=== PATIENT | male | born 1945 | race Caucasian/White ===

== ENCOUNTER 2023-01-16 16:19 | Emergency (ER) | payer MEDICARE, OTHER, SELFPAY ==
[2023-01-16 16:54] VITALS: BP 116/70; PULSE 97; RESP 16; TEMP 36.7; O2SAT 94; BMI 30.2
--- NOTE | 2023-01-16 16:58 | DI.US.S_ITS ---
PROCEDURE: US PERIPH VENOUS LOW EXTREM LT INDICATIONS: RULE OUT DVT TECHNIQUE: Real-time imaging, as well as color and pulse Doppler interrogation, were performed of the lower extremity deep veins from the inguinal ligament to the popliteal fossa. COMPARISON: None. FINDINGS: The common femoral, femoral and popliteal veins are normally compressible, and free of intraluminal thrombus. Color and pulse Doppler demonstrate normal phasic intraluminal flow. There is normal augmentation response to distal compression maneuver. IMPRESSION: No deep venous thrombosis. It is noted that portions of the deep venous structures are suboptimally visualized secondary to edema. Dictated by: Anjali Chi M.D. on 01/16/2023 at 18:32 Approved by: Anjali Chi M.D. on 01/16/2023 at 18:32
--- NOTE | 2023-01-16 19:11 | ED_ITS ---
HPI - Extremity Problem General Chief complaint: Extremity Problem,Nontraumatic Stated complaint: lt leg pain, swelling Time Seen by Provider: 01/16/23 17:36 Source: patient Mode of arrival: Ambulatory History of Present Illness HPI Narrative: Patient is a 77-year-old male who was sent over to the emergency department by his pc technician for evaluation of a potential DVT in his left lower extremity. He is had swelling to his left lower extremity for the past several days. Has never had a blood clot in the past. Is being seen by Dermatology secondary to eczema. Does have some redness on the front of his leg but no real discomfort. He can ambulate like. He does spend quite a bit of time standing and also sitting with his knees bent. No chest pain or shortness of breath. Related Data Previous Rx's Medication Instructions Recorded cephalexin 500 mg capsule 500 mg PO QID 5 days #20 caps 01/16/23 Review of Systems Constitutional Constitutional: Reports system reviewed and no additional complaints, except as documented Musculoskeletal Musculoskeletal: Reports system reviewed and no additional complaints, except as documented Integumentary/Breasts Skin/Breast: Reports system reviewed and no additional complaints, except as documented Hematologic/Lymphatic On Anticoagulants: No Patient History Social History Smoking Status: Current every day smoker Smoking Status: Current every day smoker tobacco type: cigarettes alcohol intake frequency: a few times a week Alcohol type: hard liquor Substance Use Type: does not use Exam Initial Vital Signs Initial Vital Signs: Vital Signs Temperature 98.1 F 01/16/23 16:54 Pulse Rate 97 H 01/16/23 16:54 Respiratory Rate 16 01/16/23 16:54 Blood Pressure 116/70 01/16/23 16:54 Pulse Oximetry 94 01/16/23 16:54 Oxygen Delivery Method Room Air 01/16/23 16:54 HENME Head: normal to inspection and normocephalic Skin Other: Mild redness on the anterior aspect of the distal 3rd of his left lower extremity. No blisters. No ulcerations. No vesicles. No pustules. Neuro Sensory Exam: no sensory deficits noted Extrem Other: Patient does have circumferential swelling to his left lower extremity up to his knee. No discomfort with palpation or movement of his left ankle and knee. Course Orders Ordered: ED Orders 01/16/23 16:58 US periph venous low extrem lt Stat Vital Signs Vital signs: Vital Signs - 8 hr 01/16/23 19:19 Pulse Rate 80 Respiratory Rate 18 Blood Pressure 150/70 H Pulse Oximetry 98 Oxygen Delivery Method Room Air MDM - Extremity (Nontraumatic) Imaging Data US - DVT: Radiologist's Impression: PROCEDURE:? US PERIPH VENOUS LOW EXTREM LT ? INDICATIONS:? RULE OUT DVT ? TECHNIQUE:? Real-time imaging, as well as color and pulse Doppler interrogation, were performed of the lower extremity deep veins from the inguinal ligament to the popliteal fossa.? ? COMPARISON:? None. ? FINDINGS:? The common femoral, femoral and popliteal veins are normally compressible, and free of intraluminal thrombus.? Color and pulse Doppler demonstrate normal phasic intraluminal flow.? There is normal augmentation response to distal compression maneuver. ? ? IMPRESSION:? No deep venous thrombosis.? It is noted that portions of the deep venous structures are suboptimally visualized secondary to edema. [facility] Narrative Medical decision making narrative: Ultrasound/no signs of a blood clot. He does have circumferential swelling. No definitive evidence that this is a cellulitis but does have some redness. It has not worsened over the past couple days. Will discharge patient home with a prescription in hand for antibiotics in case the redness worsens were starts to develop pain or there is more warmth to the area. Patient understands this. That does not develop an he will not start taking the antibiotics and will contact his primary doctor for further evaluation of his unilateral leg swelling. Discharge Plan Departure Patient Disposition: Home Clinical Impression: Lower extremity edema Instructions: DI for Peripheral Edema-Unilateral Activity Restrictions/Additional Instructions: I do recommend that you try to keep your leg elevated as much as possible like we discussed. Keep all of your scheduled medical appointments. If you start to notice increase in redness or fevers or warmth then start taking the antibiotics as directed. Contact your primary doctor for follow-up. Prescriptions: New cephalexin 500 mg capsule 500 mg PO QID 5 Days Qty: 20 0RF Referrals: Lane Pimentel MD [Primary Care Provider] - Stand Alone Forms: Patient Portal/API
[2023-01-16 19:19] VITALS: BP 150/70; PULSE 80; RESP 18; O2SAT 98
== END 2023-01-16 19:19 | disposition home or self-care (01) ==
PROVIDERS: Emergency Provider Emergency Medicine; PCP Family Medicine; Referring Provider Family Medicine
DX: R60.0 Localized edema (principal)
CPT/HCPCS: 93971; 99281; 99283

== ENCOUNTER → 2023-02-20 07:15 | Outpatient (CLI) | payer MEDICARE, OTHER, SELFPAY ==
--- NOTE | 2023-02-20 | DI.MRI.S_ITS ---
PROCEDURE: MR LUMBAR SPINE WO CON INDICATIONS: Low back pain, unspecified TECHNIQUE: Noncontrast sagittal T1 spin echo and T2 fast echo, sagittal STIR, and T2 fast spin echo through the lumbar spine. In cases with scoliosis, additional coronal T2 fast spin echo may be performed. COMPARISON: [facility] [place], CR, XR LUMBAR SPINE 2 OR 3 VIEWS, 02/06/2023, 8:46. FINDINGS: Image quality: Excellent. Alignment and Curvature: There is normal bony alignment. Bone Marrow: Marrow is of normal overall signal. No acute vertebral body compression fractures. Spinal Cord: Conus medullaris terminates at the L1-L2 level. Visualized cord demonstrates normal signal and size. Paraspinous Soft Tissues: No paravertebral masses. T12-L1: Normal appearance. L1-L2: Disc bulge. Minimal facet hypertrophy. No canal stenosis or foraminal stenosis. L2-L3: Disc bulge. Mild facet hypertrophy. No canal stenosis or foraminal stenosis. L3-L4: Disc bulge. Facet and ligament hypertrophy. Short pedicles. Moderate canal stenosis. Moderate right foraminal stenosis with mild flattening deformity on the exiting right L3 nerve root. Mild to moderate left foraminal stenosis. L4-L5: Disc bulge. Facet and ligament hypertrophy. Short pedicles. Severe canal stenosis. Moderate to severe right foraminal narrowing with a degree of right foraminal L4 nerve root impingement. Moderate left foraminal narrowing with mild flattening deformity on the exiting left L4 nerve root. L5-S1: Posterior disc plus osteophyte. Facet and ligament hypertrophy. Yxlw-jg-ppjvgemb central canal stenosis. Moderate right foraminal narrowing with flattening deformity on the exiting right L5 nerve root. Severe left foraminal narrowing with left foraminal L5 nerve root impingement. IMPRESSION: 1. Diffuse degenerative change with multilevel underlying facet arthropathy. 2. Canal stenosis is moderate at L3-L4, severe at L4-L5, and qnnm-od-qihwnund at L5-S1. 3. Multilevel foraminal narrowing as described above. Findings include moderate to severe right foraminal narrowing at L4-L5 and severe left foraminal narrowing at L5-S1. Dictated by: Grant Riddle M.D. on 02/20/2023 at 9:07 Approved by: Grant Riddle M.D. on 02/20/2023 at 9:11
== END ==
PROVIDERS: PCP Family Medicine; Referring Provider Orthopaedic Surgery Orthopaedic Surgery of the Spine; Visit Provider Orthopaedic Surgery Orthopaedic Surgery of the Spine
DX: M47.816 Spondylosis without myelopathy or radiculopathy, lumbar region (principal); M47.817 Spondylosis without myelopathy or radiculopathy, lumbosacral region; M48.061 Spinal stenosis, lumbar region without neurogenic claudication; M48.07 Spinal stenosis, lumbosacral region; M54.50 Low back pain, unspecified
CPT/HCPCS: 72148

== ENCOUNTER → 2024-06-14 14:50 | Outpatient (CLI) | payer MEDICARE, OTHER, SELFPAY ==
--- NOTE | 2024-06-14 15:13 | EKG_ITS ---
[place] [id number] [place] [id number] Test Date: 2024-06-14 Pat Name: Delfin Brannon Department: [facility] Room: Gender: Male Planisher: ALYSE : 1945 Requested By: Order Number: [id number] Reading MD: Lane Montemayor Measurements Intervals [place] Rate: 64 P: 75 AK: 154 QRS: -35 QRSD: 100 T: 49 QT: 390 QTc: 402 Interpretive Statements Normal sinus rhythm Left axis deviation Electronically Signed On 06-15-2024 14:44:[address]emayor
[2024-06-14 15:21] LABS: Add Manual Diff / Slide Review NO; Basophils Absolute Auto 0 /uL (0-100); Basophils Percent Auto 0.5 % (0-2); Eosinophils Absolute Auto 200 /uL (0-450); Eosinophils Percent Auto 3.7 % (2-4); Hematocrit 34.6 % (41-53); Hemoglobin 11.9 g/dL (13.5-17.5); Lymphocytes Absolute Auto 1500 /uL (1100-4500); Lymphocytes Percent Auto 26.7 % (25-40); Mean Corpuscular HGB Conc 34.3 % (30-36); Mean Corpuscular Hemoglobin 30.9 PG (26-34); Monocytes Absolute Auto 600 /uL (0-900); Monocytes Percent Auto 9.9 % (3-14); Neutrophils Absolute Auto 3300 /uL (1500-7000); Neutrophils Percent Auto 59.2 % (50-75); Platelet Count 204 X10^3/uL (150-400); Red Blood Cell Count 3.85 X10^6/uL (4.5-5.9); Red Cell Distribution Width 13.1 % (11.6-14.8); White Blood Cell Count 5.6 X10^3/uL (4.5-11.0)
[2024-06-14 15:47] LABS: BUN Creatinine Ratio 21.3 (6-22); Blood Urea Nitrogen 19 mg/dL (9-20); Calcium 9.3 mg/dL (8.4-10.2); Carbon Dioxide 27 mmol/L (22-32); Chloride 103 mmol/L (98-107); Estimated Glomerular Filt Rate > 60 mL/min (>60); Glucose 107 mg/dL (80-110); HEMOLYSIS < 15 (0-50); Potassium 4.3 mmol/L (3.4-5.1); Sodium 137 mmol/L (137-145)
== END ==
PROVIDERS: PCP Physician Assistant; Referring Provider Orthopaedic Surgery Foot and Ankle Surgery; Visit Provider Orthopaedic Surgery Foot and Ankle Surgery
DX: Z01.818 Encounter for other preprocedural examination (principal); R73.9 Hyperglycemia, unspecified; Z01.812 Encounter for preprocedural laboratory examination
CPT/HCPCS: 36415; 80048; 83036; 85025; 93005

== ENCOUNTER 2024-06-30 05:58 | Day surgery (SDC) | payer MEDICARE, OTHER, SELFPAY ==
[2024-06-28 08:37] VITALS: BMI 29.0
[2024-06-30] VITALS (12 sets, daily range): BP systolic 108–147; BP diastolic 57–84; PULSE 64–92; RESP 12–20; TEMP 36.1–36.6; O2SAT 94–98; BMI 28.0
--- NOTE | 2024-06-30 06:00 | DI.RAD.S_ITS ---
PROCEDURE: XR KNEE RT 1TO2V INDICATIONS: TKA TECHNIQUE: 2 view(s) of the knee acquired. COMPARISON: None. FINDINGS: Bones: Patient is status post knee joint arthroplasty. Hardware components are in expected positions. Visualized bony structures are intact. Soft tissues: Overlying postoperative changes are noted. IMPRESSION: Expected post-operative appearance of a knee arthroplasty. Dictated by: Grant Riddle M.D. on 06/30/2024 at 11:22 Approved by: Grant Riddle M.D. on 06/30/2024 at 11:22
[2024-06-30] MEDS: ACETAMINOPHEN 325 MG TABLET 975 MG PO (06:53)
[2024-06-30] MEDS: LACTATED RINGERS 1,000 ML 42 ML IV (06:55)
--- NOTE | 2024-06-30 06:55 | PM.PREOP ---
Pre-operative Note Interval Note History & Physical reviewed/Exam performed by Physician: Yes Changes to H&P: No
--- NOTE | 2024-06-30 07:35 | P.OP_ITS ---
Operative Date/Time/Diagnoses Date of procedure: 06/30/24 Time of procedure: 08:00 Pre-op diagnosis: Knee Arthritis right Post-op diagnosis: same Procedure & Clinicians Procedure: Total knee replacement right CPT code 81073 Robotic assisted surgery [id number] Computer navigated surgery [id number] Same procedure as scheduled: Yes Indications: The patient has significant pain associated with osteoarthritis of the right knee. It is associated with morning stiffness. Pain interferes with daily normal function including ambulation standing and any activities that are weight-bearing. It interferes with sleep. There is crepitation with range of motion. There is marked joint line tenderness. X-rays show significant levels of osteoarthritis. Double attempted previous conservative treatment has been rendered. The patient has failed exercise program, medications and previous injections. Patient is indicated for total knee arthroplasty. The risks and benefits of the procedure have been discussed with the patient and given the opportunity to ask questions. The risks of surgery include but are not limited to infection, malunion, nonunion, persistence of pain, damage to nerves and blood vessels, posttraumatic arthritis, DVT, PE, cardiopulmonary complications and . The patient expressed a thorough understanding of the risks and benefits of surgery and has elected to proceed. Consent was signed. During the operation, the services of a physician research lab assistant were medically indicated and necessary to provide the exposure of the operative site for the surgical procedure and to maintain the limb in a proper position to carry out the operation safely and efficiently. Without a qualified registered dental assistant rda being present this would extended the operative procedure and made the procedure technically more difficult to perform. Surgeon: Rosi Oseguera Account Developer: Deven Arredondo Anesthesia Type: General, Spinal, Peripheral nerve block and Local Operative Notes Findings: End-stage right knee arthritis full-thickness cartilage loss Closure Type: primary Specimen(s): none sent Prosthetic devices, grafts, tissues, transplants, or devices: [employer] Nephew journey 2 bCS Femur cobalt chromium 7 Tibia 6 Patella 38x9 Poly 10mm Estimated Blood Loss (mL): 100 Blood products transfused: none Tourniquet time (min): 75 Procedure in detail: Patient was seen in the preoperative area where the patient and site of surgery were identified in the operative right knee was marked informed consent confirmed. This was the right knee. Patient received the appropriate pre operative antibiotics this was 2 g of Ancef. And other preoperative medications and was taken to the operating room placed on operating table in the supine position. Spinal anesthetic were administered. The operative extremity was then prepped and draped in the standard sterile fashion with a nonsterile tourniquet high on the thigh. Patient was placed on the green foam bolsters. A lateral post was placed at the level of the proximal thigh /trochanter area as a lateral post. Formal time-out procedure was performed confirming the patient's side and site of surgery and administration of appropriate preoperative antibiotics and implants were in the room accounted for. All were in agreement. Patient received a preoperative dose of tranexamic acid and then a 2nd dose at tourniquet release Patient was prepped and draped in the standard sterile fashion and the foot was placed into the leg castaneda. This was taken into high flexion and the incision was marked out over the anterior knee to the level of the medial tubercle tubercle. The Esmarch was then used for exsanguination and the tourniquet was inflated to 250 mmHg. Was made through the skin and subcutaneous tissue in high flexion this was then brought down into 30? of flexion for the medial parapatellar arthrotomy. A marker pen was used to ramírez the arthrotomy site for later repair. Joint fluid was evacuated. The anterior osteophytes and soft tissues were removed. Routine medial release was initially made along the medial proximal tibia with Bovie. The patella was 1st cut using the saw sized and prepped and then subluxed throughout the case and protected. The leg was then taken into extension and the patella was everted and the patella was cut to accommodate the patellar button. This was sized to a 38 mm b utton for a 9 mm thickness to recreate the original dimensions of the patella. Poly was removed and the protector replaced and the patella was subluxed and the knee was taken back up into flexion and attention was returned to the femur. Then the rotational landmarks of Whitesides line and the trans epicondylar axis were marked on the femur with electrocautery. ACL and PCL were released. Then the Cori robotic pins were placed into the femur and tibia and the race set up. Landmarks were established and the robotic planning was commenced. Plan was developed and improved and adjusted as necessary to create a balanced knee. Initial alignment was 2? of varus planned correction was to 0?. 3? of external rotation was placed in the distal femur in 3? of flexion. Cuts were adjusted for a balanced 1-2 mm flexion and extension gap medial and lateral. Once the Plan was satisfactory, the bur was used to remove the distal femur and attention was turned to the tibia and the tibial resection was made accordance with the robotic planning. Next remainder of the meniscus was removed in extension and the posterior knee was injected. Then in extension the posterior capsule was injected with a mixture of 40 mL of 0.25% Marcaine and 20 mL of Exparel care to avoid excessive injection posterior laterally. The remainder of this was saved for the capsule and subcutaneous tissue and placed during cement curing. The extension block was placed and matched the robotic plan. Then attention was returned to the distal femur. Then the 5 in 1 cutting block was applied complete the femur cuts. The trials were placed. And the femoral notch was cut a standard fashion using Reamer then slap hammer. The knee was trialed and the checked. Knee was balanced in flexion extension. Range of motion 0-135 degrees was obtained. The rotation femoral trial was marked Bovie on the bone and checked with a long beverly. The tibia was then finished with a drill and flange cut and then The trial implants were removed. The wound and bone was irrigated with pulsatile lavage. This was then dried with a sponge. The components were verified and opened and the cement was mixed. Cement was applied to the components and then to the bone then the tibia was cemented in place 1st followed by the femur then the patella. Excess cement was removed. With care looking around the back of the knee. Remainder of the injection was injected around the capsule. trial poly was placed back in the leg was placed into extension for the patellar cementing. After this was cured approximately 15 minutes later and the dilute Betadine solution was placed for at least 3 minutes in the wound this was then irrigated out and the final poly was placed. This was a 10 mm poly. The tourniquet was released hemostasis was achieved. Final 1g of tranexamic acid was given IV at the time of tourniquet release. The capsule was closed with 1. Ethibond suture. Followed by a running Quill stitch. Subcutaneous layer was closed with 3-0 Vicryl suture. Skin was closed with a running V lock suture Stratafix Monocryl type suture and Dermabond. An Aquacel dressing was placed . An Eddie wrap was applied. Anesthetic was terminated the patient was woken from anesthesia and taken to recovery room in good condition. There no immediate complications from this procedure. The patient will be maintained on a standard total knee replacement protocol with weight-bearing as tolerated. Complications: none Post-operative Condition: stable Disposition: PACU Plan for aftercare: Aspirin 81 mg b.i.d. enteric-coated x6 weeks for DVT prophylaxis. Weightbear as tolerated. Standard total knee arthroplasty postop protocol. We will start physical therapy within a week. Follow up in Orthopedic Clinic in 2 weeks. PACU x-rays demonstrated appropriate alignment total knee arthroplasty. May shower with Aquacel dressing. No soaking the dressing.
[2024-06-30] MEDS: CEFAZOLIN 2 GM/100 ML PREMIX 100 ML IV (08:10)
[2024-06-30] MEDS: TRANEXAMIC ACID 1,000 MG VIAL 1000 MG INJ ×2 (08:10→09:38)
--- NOTE | 2024-06-30 08:27 | SUR.OPER ---
Supine on padded OR bed. Pillow under head, arms secured on padded armboards <90 degree abduction. Safety belt across torso. Non-operative leg secured with tape over blanket over lower leg. Operative leg secured in DeMayo/Jose/Nathe positioner. Foam padded brace at thigh of operative leg.
[2024-06-30] MEDS: BUPIVACAINE 0.25% (PF) 30 ML, EPINEPHrine 0.15 MG INJ (09:25)
[2024-06-30] MEDS: BUPIVACAINE LIPOSOME 266 MG/20 ML VIAL INJ (09:25)
--- NOTE | 2024-06-30 09:29 | SUR.PREOP ---
Block complete by Noris Chen CRNA. See anesth paperword for times. Monitoring initiated and maintained throughout procedure. Oxygen and medications given by anesthesiologist instructions. Patient remained stable throughout procedure, no adverse reactions noted.
[2024-06-30] MEDS: ONDANSETRON 4 MG/2 ML INJ IV (11:32)
[2024-06-30] MEDS: OXYCODONE IR 5 MG TABLET PO (11:33)
--- NOTE | 2024-06-30 13:07 | PM.PNPO.1 ---
Subjective Subjective Interval history: Patient is staying overnight due to combination slow wearing off spinal and caregiver feeling ill and is unable to take care of him tonight. Should discharge home tomorrow morning. After PT Exam Vital Signs (past 8 hours): - 06/30/24 07:05 06/30/24 10:15 06/30/24 10:20 Temperature 97.9 F 97.3 F L 97.3 F L Pulse Rate 64 90 81 Respiratory Rate 12 16 17 Blood Pressure 115/67 147/84 H 144/76 H Pulse Oximetry 98 94 94 Oxygen Delivery Method Room Air Room Air Room Air 06/30/24 10:30 06/30/24 10:35 06/30/24 11:40 Temperature 97.1 F L 97.1 F L 97.6 F Pulse Rate 75 74 75 Respiratory Rate 15 14 14 Blood Pressure 130/81 131/79 130/74 Pulse Oximetry 95 95 95 Oxygen Delivery Method Room Air Room Air Room Air 06/30/24 12:45 Temperature 97.1 F L Pulse Rate 77 Respiratory Rate 17 Blood Pressure 127/73 Pulse Oximetry 95 Oxygen Delivery Method Room Air Oxygen Delivery Method Room Air [facility] Medical History (Updated 06/28/24 @ 10:35 by Sonal Horn RN) Tinnitus Arthritis Aortic stenosis (01/26/24) Pre-diabetes Atrial tachycardia (11/2023) Surgical History (Updated 06/28/24 @ 10:35 by Sonal Horn RN) History of surgery of head H/O vasectomy H/O inguinal hernia repair (~1996) Social History household members: spouse Smoking Status: Former smoker alcohol intake: former Assessment & Plan Post-op Postoperative Procedures: Procedures Operation Date: 06/30/24 07:45 Actual Procedure Side Surgeon p Total Knee Arthroplasty - Robot Right Rosi Oseguera MD
--- NOTE | 2024-06-30 13:27 | SUR.PHASEII ---
Report called to Ermelinda Valenzuela. Patient denied need to void, bladder scan pending.
--- NOTE | 2024-06-30 15:15 | SUR.PHASEII ---
1430 Pt transferred to 213 with 1 belongings bag, 1 personal bag with ice machine, walker and glasses on by Jan JAMES after straight cath for 750ml.
[2024-06-30] MEDS: FINASTERIDE 5 MG TABLET PO (16:41)
[2024-06-30] MEDS: LACTATED RINGERS 1,000 ML 100 ML IV (16:41)
--- NOTE | 2024-06-30 16:58 | PT.IIE ---
Current Diagnoses Unilateral primary osteoarthritis, right knee (06/30/24) Surgery Performed Operation Date: 06/30/24 07:45 Actual Procedures p Total Knee Arthroplasty - Robot(Right) - Rosi Oseguera MD Surgical History (Last Updated 06/28/24 @ 10:35 by Sonal Horn, RN) H/O inguinal hernia repair (~1996) H/O vasectomy History of surgery of head Medical History (Last Updated 06/28/24 @ 10:35 by Sonal Horn, RN) Aortic stenosis (01/26/24) Arthritis Atrial tachycardia (11/2023) Pre-diabetes Tinnitus Physical Therapy Inpatient Evaluation/Re-Eval M1 PT/OT-IP Prior Functional Status Start: 06/30/24 16:44 Freq: NEEDED Status: Active Protocol: Document 06/30/24 16:44 KJ (Rec: 06/30/24 16:58 KJ [id number]) Medical Review Prior Functional Status Mobility and Gait Indep mobility, most recently using a straight cane and knee brace Activities of Daily Living and IADL's Indep ADLs Social History Household Members spouse Living Arrangements House Number of Floors (Floors) One Floor Number of Stairs To Enter/Railing? 0 Home Environment Standard Height Toilet,High Toilet,Tub/Shower Home Equipment Front Wheel Walker,Shower Seat without Backrest Employment Status Retired M2 PT-IP Current Condition Start: 06/30/24 16:44 Freq: NEEDED Status: Active Protocol: Document 06/30/24 16:44 KJ (Rec: 06/30/24 16:58 KJ [id number]) Physical Therapy Current Condition Current Condition Evaluation Date 06/30/24 Treatment Diagnosis impaired mobility Onset Date 06/30/24 M3 PT-IP Subjective Start: 06/30/24 16:44 Freq: NEEDED Status: Active Protocol: Document 06/30/24 16:44 KJ (Rec: 06/30/24 16:58 KJ [id number]) Subjective Physical Therapy Visit Type Type Initial Evaluation Visit Start Time 15:14 Visit Stop Time 16:02 Physical Therapy Visit Comments Patient Goals to return home and heal well Therapy Pain Assessment Pain When Pain Assessed At Rest Pain Present Pain Present Pain Reported Location right knee Intensity 2 Scale Used Numeric (0 - 10) Description Aching Pain Management Techniques Apply Cold,Re-positioning M4 PT-IP Mobility and Gait Start: 06/30/24 16:44 Freq: NEEDED Status: Active Protocol: Document 06/30/24 16:44 KJ (Rec: 06/30/24 16:58 KJ [id number]) PT-Bed Mobility Assessment Rolling Type of Rolling Roll to Right Level of Assist Independent Supine to Sit Supine to Sit Standby Assistance Scooting Scooting to Edge of Bed Standby Assistance PT-Transfer Assessment Sit to and From Stand Sit to and from Stand Standby Assistance Equipment Transfer Assistive Device Gait Belt,Front Wheeled Walker Orthotic/Prosthetic Devices or Brace: No Transfers Transfer Destination Chair Transfer Technique Stand Step Pivot Transfer Ability Level of Assist Contact Guard Assistance Gait Assessment Gait Gait Assistance Required: Contact Guard Assist Distance (Feet) 5 Able to Maintain Weight Bearing Status Yes During Gait Assistive Devices Assistive Device Gait Belt,Front Wheeled Walker Gait Deviations General Gait Pattern Decreased Stride Length Factors Limiting Gait Function Factors Limiting Gait Function Decreased Sensation,Limited Range of Motion Comments Gait Comments decreased knee flex, guarded ambulation PT-Balance Assessment Sitting Balance and Reactions Static Sitting Balance Ability Normal Dynamic Sitting Balance Ability Normal Standing Balance and Reactions Static Standing Balance Ability Good Dynamic Standing Balance Ability Good M5 PT-IP Objective Assessments Start: 06/30/24 16:44 Freq: NEEDED Status: Active Protocol: Document 06/30/24 16:44 KJ (Rec: 06/30/24 16:58 KJ [id number]) Orientation Orientation/Cognition Level of Alertness Alert Orientation Name,Age,Birthday,Place, Situation Language Function Ability No Deficits Noted Safety Awareness Understands Safety Issues Memory Description No Deficits Noted Gross Range of Motion Upper Extremity ROM Assessment Within Functional Limits Lower Extremity ROM Assessment Right Impaired Strength Upper Extremity Strength Assessment Within Functional Limits Lower Extremity Strength Assessment Right Impaired Knee 3/5 M6 PT-IP Treatment Start: 06/30/24 16:44 Freq: NEEDED Status: Active Protocol: Document 06/30/24 16:44 KJ (Rec: 06/30/24 16:58 KJ [id number]) Physical Therapy Treatment Exercises Exercises Ankle Pumps,Gluteal Sets,Quad Sets,Seated Knee Flexion/ Extension Education Education Provided Weight Bearing Status,Post-Op Packet,Safety M7 PT-IP Assessment and Plan Start: 06/30/24 16:44 Freq: NEEDED Status: Active Protocol: Document 06/30/24 16:44 KJ (Rec: 11/13/24 16:58 KJ [id number]) PT Summary Assessment and Plan Potential Rehabilitation Potential Excellent Status of Condition at Evaluation Evolving Summary Impairments Pain,ROM,Strength,Sensation, Gait,Activity Tolerance Goals Bed Mobility Goal Independent Transfer Goal Standby Assistance Gait Goal Standby Assistance Gait Distance 30 Other Goals ascend/descend one step w/rail and cane Days to Meet Goals 2 Frequency of Treatment Frequency Of Treatment Twice a Day Treatment Plan Physical Therapy Treatment Plan Transfer Training,Gait Training,Therapeutic Exercise Other Recommendations and Next Treatment try stairs Focus Weight Bearing Status Weight Bearing Status Weight Bear as Tolerated Recommendations To Nursing Amount of Assist Needed 1 Person Assist Discharge Recommendations PT Discharge Recommendations Home with Assistance Transportation Needs at Discharge Private Vehicle
--- NOTE | 2024-06-30 19:02 | PC.NURSE ---
: Unable to void when he first came from PACU. They had to in and out cath him down there. Up to bathroom several times. Given his BPH med early and called and they brought in his other bph med and he took a dose. Up to bathroom twice before he was able to void 100mls of urine and then voided the rest of the way in toilet. PVR was 5mls.
[2024-06-30] MEDS: ASPIRIN EC 81 MG TABLET PO (20:16)
[2024-06-30] MEDS: DOCUSATE 100 MG CAPSULE PO (20:16)
[2024-06-30] MEDS: IBUPROFEN 600 MG TABLET PO (20:17)
[2024-06-30] MEDS: ATORVASTATIN 20 MG TABLET 40 MG PO (20:17)
[2024-06-30] MEDS: ACETAMINOPHEN 325 MG TABLET 650 MG PO (20:17)
[2024-07-01] MEDS: PANTOPRAZOLE DR 20 MG TABLET PO (05:59)
[2024-07-01 08:00] VITALS: BP 118/62; PULSE 87; RESP 15; TEMP 36.7; O2SAT 98
[2024-07-01] MEDS: DOCUSATE 100 MG CAPSULE PO (08:31)
[2024-07-01] MEDS: ASPIRIN EC 81 MG TABLET PO (08:31)
--- NOTE | 2024-07-01 09:12 | OT.IP.EVAL ---
Current Diagnoses Unilateral primary osteoarthritis, right knee (06/30/24) Surgery Performed Operation Date: 06/30/24 07:45 Actual Procedures p Total Knee Arthroplasty - Robot(Right) - Rosi Oseguera MD Past Medical History (Last Updated 06/28/24 @ 10:35 by Sonal Horn, RN) Aortic stenosis (01/26/24) Arthritis Atrial tachycardia (11/2023) Pre-diabetes Tinnitus Surgical History (Last Updated 06/28/24 @ 10:35 by Sonal Horn, RN) H/O inguinal hernia repair (~1996) H/O vasectomy History of surgery of head Occupational Therapy Inpatient Evaluation/Re-Eval M1 PT/OT-IP Prior Functional Status Start: 06/30/24 16:44 Freq: NEEDED Status: Active Protocol: Document 07/01/24 09:03 [facility] (Rec: 07/01/24 09:12 [facility] [id number]) Medical Review Prior Functional Status Mobility and Gait Indep mobility, most recently using a straight cane and knee brace Activities of Daily Living and IADL's Indep ADLs Social History Household Members spouse Living Arrangements House Number of Floors (Floors) One Floor Number of Stairs To Enter/Railing? 0 Home Environment Standard Height Toilet,High Toilet,Tub/Shower Home Equipment Front Wheel Walker,Bedside Commode,Tub Transfer Bench, Hand Held Shower,Document Control Manager,Grab Bars Near Toilet,Grab Bars In Shower Employment Status Retired Additional Social History Comment Pt able to assist but limited and has helpful neighbors. M2 OT-IP Current Condition Start: 07/01/24 09:02 Freq: Status: Active Protocol: Document 07/01/24 09:03 [facility] (Rec: 07/01/24 09:12 [facility] [id number]) Occupational Therapy Current Condition Current Condition Evaluation Date 07/01/24 Treatment Diagnosis S/P R TKA Diagnosis Onset Date 06/30/24 M3 OT- IP Subjective and Pain Start: 07/01/24 09:02 Freq: Status: Active Protocol: Document 07/01/24 09:03 [facility] (Rec: 07/01/24 09:12 [facility] [id number]) OT- Subjective Occupational Therapy Visit Type Type Initial Evaluation Visit Start Time 08:35 Visit Stop Time 09:02 Occupational Therapy Visit Comments Patient Comments Pt agreed to try LB dressing equipment and do OT eval but not wanting to get dressed or shower at this time as wanting on having a bowel movement. Patient/Caregiver Goals TO go home. OT Pain Assessment Pain When Pain Assessed At Rest Pain Present Pain Present Pain Reported Location right knee Intensity 2 Scale Used Numeric (0 - 10) M4 OT- IP ADL's Start: 07/01/24 09:02 Freq: Status: Active Protocol: Document 07/01/24 09:03 [facility] (Rec: 07/01/24 09:12 [facility] [id number]) OT TWY-Coaf-Ppuuhih General Evaluation Self-Feeding Ability Independent OT ADL-Grooming Comments OT Grooming Comments Pt refused. OT ADL-Oral Care Comments Oral Care Comments Pt refused. OT ADL-Dressing General Eval Lower Body Dressing Ability Maximum Assistance Areas Needing Assistance Socks Comments OT Dressing Comments Able to practice and show pt LB dressing equipment. Educated to dress the RLE first and take out last. OT ADL-Toileting Comments OT Toileting Comments Pt states to use the BSC on top on the toilet and use of urinal at night. Educated pt to be mindful not to twist his knee during ADL needs. OT ADL-Bathing Comments OT Bathing Comments Pt refused. Spoke on acre for his bandage for showering needs. M5 OT- IP IADL's Start: 07/01/24 09:02 Freq: Status: Active Protocol: Document 07/01/24 09:03 [facility] (Rec: 07/01/24 09:12 [facility] [id number]) OT-Instrumental Activities of Daily Living Home Safety Awareness Awareness of Need for Assistance at Home Good Awareness Ability to Problem Solve Emergency Able to Problem Solve Situations Medication Management Medication Management No Deficits Identified Money Management Money Management No Deficits Identified Meal Preparation Meal Preparation Caregiver Provides Assist Obstetrical Tech Obstetrical Tech Caregiver Provides Assist M6 OT- IP Functional Cognition Start: 07/01/24 09:02 Freq: Status: Active Protocol: Document 07/01/24 09:03 [facility] (Rec: 07/01/24 09:12 [facility] [id number]) Cognitive Factors Limiting Selfcare Function Cognitive Ability Level of Alertness Alert Patient Orientation Name,Age,Birthday,Month,Date, Year,Day of Week,Place, Situation Attention Span Ability Capable of Focused Attention, Capable of Sustained Attention Ability to Follow Commands Able to Follow Multi-Step Commands Safety Awareness Underestimates Need for Assistance Cognitive Comments Cognitive Assessment Comments Pt a little impulsive at times . Cues to hold onto stable surface or fww if standing. OT- Vision and Hearing OT- Vision Assessment Visual Acuity Glasses All The Time Visual Attentiveness WFL Occular Pursuits WFL M7 OT- IP Mobility and Balance Start: 07/01/24 09:02 Freq: Status: Active Protocol: Document 07/01/24 09:03 [facility] (Rec: 07/01/24 09:12 [facility] [id number]) OT- Bed Mobility Assessment Supine to Sit Supine to Sit Assist Standby Assistance Sit to Supine Sit to Supine Assist Standby Assistance OT-Transfer Assessment Transfers Transfer Ability Standby Assistance Technique Transfer Destination Bed Comments Mobility Comments SBA for bed mobility needs and use of his hands to assist to get his RLE into and out of the bed. OT- Balance Assessment Sitting Balance and Reactions Static Sitting Balance Ability Normal Dynamic Sitting Balance Ability Good Standing Balance and Reactions Static Standing Balance Ability Good Dynamic Standing Balance Ability Fair M8 OT- IP Objective Assessments Start: 07/01/24 09:02 Freq: Status: Active Protocol: Document 07/01/24 09:03 [facility] (Rec: 07/01/24 09:12 [facility] [id number]) OT Gross Range of Motion Upper Extremity Range of Motion Assessment Within Functional Limits OT Strength Upper Extremity Strength Assessment Within Functional Limits M9 OT- IP Assessment and Plan Start: 07/01/24 09:02 Freq: Status: Active Protocol: Document 07/01/24 09:03 [facility] (Rec: 07/01/24 09:12 [facility] [id number]) OT Summary Assessment and Plan Potential Rehabilitation Potential Excellent Analytic Complexity at Evaluation Low Summary OT Impairments Pain,Balance,Functional Mobility,Dressing,Toileting, Bathing,Toilet Transfers, Shower Transfers Progress Towards Goals Progressing Toward Goals Assessment Summary Pt low complexity and main barriers are pain, steps, and will need assist for dressing and showering needs. Pt will benefit from getting LB dressing equipment. Pt to go home with assist and have outpt PT. Goals Dressing Goal Minimal Assistance Toileting Goal Independent Bathing Goal Standby Assistance Toilet Transfer Goal Independent Shower Transfer Goal Standby Assistance Days to Meet Goals 5 Frequency of Treatment Other frequency 5x/week Treatment Plan OT Treatment Plan ADL Training,Functional Mobility,Patient/Family Education,Discharge Planning Discharge Recommendations OT Discharge Recommendations Home with Assistance, Outpatient PT Home Equipment Needs LB dressing equipment Transportation Needs at Discharge Private Vehicle
--- NOTE | 2024-07-01 09:29 | PM.DS.1 ---
History of Present Illness History of Present Illness Chief complaint: [facility] [place], [place] Narrative: Delfin is a pleasant 78 year old male who is POD#1 s/p R TKA by Dr. Oseguera. This morning the patient states he is doing well, pain is mild-moderate(4/10), he feels ready to discharge to home. He lives at home with is willing and able to aid in his postop recovery. He has postop PT scheduled with [facility] in [place]. He has postop pain medications at home already. He has a walker, cane and ice machine at home. He has been up and worked with OT this morning, he is urinating well without issue. Denies fever, chills, chest pain, SOB, nausea, vomiting. Discharge Providers Provider Discharge Date: 07/01/24 Primary care physician: Afia Calix PA-C Consults: 06/30/24 06:00 Consult to Anesthesiology Routine Comment: Consulting Provider: Anesthesiologist Reason for consultation: Regional block for post operative pain control 06/30/24 06:55 Consult to Physical Therapy Evaluate & Treat Comment: SDS R TKA Physician Instructions: Evaluate and Treat 06/30/24 14:36 Consult to Discharge Planning Routine Comment: Consult to Occupational Therapy Evaluate & Treat Comment: Physician Instructions: Evaluate and treat Consult to Physical Therapy Evaluate & Treat Comment: Physician Instructions: postop TKA protocol Discharge provider: Clemencia Chi PA-C Summary Hospital Course Discharge Diagnosis: Stable status post right total knee arthroplasty Hospital Course: Hospital course complicated by delayed wearing off a spinal anesthesia required patient to stay 1 night postoperatively Exam Vital Signs (past 8 hours): - 07/01/24 08:00 Temperature 98.0 F Pulse Rate 87 Respiratory Rate 15 Blood Pressure 118/62 Pulse Oximetry 98 Oxygen Flow Rate 0 Oxygen Delivery Method Room Air Oxygen Flow Rate 0 Narrative Exam Narrative: Patient lying comfortably in bed during our interview today. No acute distress. AOx3. Grossly normal alignment of the right lower extremity. 5/5 strength with DF, PF, EHL bilaterally. Gross sensation intact throughout bilateral lower extremities. Calves soft and non-tender bilaterally. SCDs are on and functioning. Brisk capillary refill, pulses intact. Post-surgical Aquacel dressing clean, dry and intact over the right knee without drainage. [facility] Medical History (Updated 06/28/24 @ 10:35 by Sonal Horn RN) Tinnitus Arthritis Aortic stenosis (01/26/24) Pre-diabetes Atrial tachycardia (11/2023) Surgical History (Updated 06/28/24 @ 10:35 by Sonal Horn RN) History of surgery of head H/O vasectomy H/O inguinal hernia repair (~1996) Social History household members: spouse Smoking Status: Former smoker alcohol intake: former Discharge Assessment & Plan Assessment and Plan Assessment: Stable status post right total knee arthroplasty Plan of Treatment: 1) Plan to discharge to home today with . 2) Continue multimodal pain management with ice to the knee for additional pain control. He has pain medication at home. 3) ASA b.i.d. for DVT prophylaxis. 4) Start outpatient physical therapy to work on range of motion and mobility 5) Keep dressing intact, clean, dry until 2 week postop appointment. No soaking the incision site in pools or tubs. No topical ointments or creams to the incision site. 6) Follow up at [facility] in 2 weeks for a postop appointment and wound check. All patient's questions were answered, he demonstrates understanding and is in agreement with the plan. Call our office if any questions or concerns arise. Discharge Plan Discharge Plan Patient Disposition: Home Discharge orders & Medications Discharge Orders: Discharge (Order); Ordered 07/01/24 Ordered By: Clemencia Chi Prescriptions: Continued alfuzosin 10 mg tablet extended release 24 hr 10 mg PO QPM atorvastatin 40 mg tablet 40 mg PO QPM finasteride 5 mg tablet 5 mg PO QPM omeprazole 20 mg Tablet,Delayed Release (Dr/Ec) 20 mg PO DAILY Follow up/Referrals: Afia Calix PA-C [Primary Care Provider] - Rosi Oseguera MD [Physician] - (Follow up at [facility] as scheduled in 2 weeks. ) Diet/Activity/Treatments Diet: Diet as Tolerated Other treatments: Dressing/Wound care: -Remove the Eddie wrap 48 hours after surgery. -Keep Aquacel dressing in place until postoperative follow-up office visit. -you may see some drainage on the bandage, this is ok. If it is leaking or saturated, then the dressing can be changed to clean gauze or a clean surgical dressing from a pharmacy or reinforced with additional gauze and paper tape or dressings over the top. Otherwise, just keep dressing in place until follow up. -Okay to shower. Keep wound out of direct water stream. No soaking or submerging until all the scabs fall off (approximately 6 weeks). -Please call the office if dressing becomes significantly wet, soiled, or saturated. Activities: -Weight-bearing as tolerated. Use front wheeled walker, and progress to cane when safe. -Continue with home exercises as directed by your physical therapist. -Elevate ?toes above the nose if you have significant swelling in your lower leg. (A wedge pillow is easiest.) -Ice your incision as needed for pain/inflammation/swelling. Protect your skin with a folded pillowcase. Follow-up: -Follow-up with your surgeon or PA in the office in 10-14 days after surgery. -Follow-up with your surgeon 6 weeks postoperatively. Call the office if you have chest pain, shortness of breath, significant swelling that will not resolve with elevating, fever over 101?, significantly worsening pain. [facility]: [phone] You have been discharged with medications. These have already been sent to your pharmacy. Pain include pain medications: Oxycodone take 5 mg orally every 4 hours as needed for pain. If your pain is more severe you may take up to 2 or a maximum 3 pills (15 mg) every 4 hours for pain. Take the smallest dose necessary. Narcotic medication can make you feel constipated. You can get hive-cql-yrbzqyk stool softener such as docusate sodium-Colace at a pharmacy to help with this. You also have prescriptions for ibuprofen 800 mg take this 3 times a day for least the 1st 10 days after surgery to help with pain control. And acetaminophen (Tylenol) take 500-1000 mg 3 times a day for pain control. You also have a prescription for Zofran (ondansetron) this is a strong anti nausea medication that can be taken up to every 8 hours as needed for nausea Additionally will take a baby aspirin 81 mg twice a day (morning and night) to help prevent blood clots pain meds were prescribed at your preop appt Skin/Wound/Dressing Care Report to your healthcare provider any signs of infection, such as:: chills, fever, night sweats, increased pain, unusual drainage and unusual redness Visit Report/Discharge Packet Instructions: DI for Knee Replacement, DI for Prescription Opioid Use Stand Alone Forms: Patient Portal/API Discharge Data Primary Care Provider: Afia Calix Attending Provider: Rosi Oseguera VTE Deep Vein Thrombosis/Pulmonary Embolism Present on Admission: No
--- NOTE | 2024-07-01 10:29 | PT.IPTN ---
Current Diagnoses Unilateral primary osteoarthritis, right knee (06/30/24) Surgery Performed Operation Date: 06/30/24 07:45 Actual Procedures p Total Knee Arthroplasty - Robot(Right) - Rosi Oseguera MD Physical Therapy Treatment Note M2 PT-IP Current Condition Start: 06/30/24 16:44 Freq: NEEDED Status: Active Protocol: Document 06/30/24 16:44 KJ (Rec: 06/30/24 16:58 KJ [id number]) Physical Therapy Current Condition Current Condition Evaluation Date 06/30/24 Treatment Diagnosis impaired mobility Onset Date 06/30/24 M3 PT-IP Subjective Start: 06/30/24 16:44 Freq: NEEDED Status: Active Protocol: Document 07/01/24 10:58 TS (Rec: 07/01/24 11:05 TS [id number]) Subjective Physical Therapy Visit Type Type Treatment Note Visit Start Time 10:29 Visit Stop Time 10:45 Number of MATERIAL LOADER Visits 1 Physical Therapy Visit Comments Patient Comments Pt found resting in bed, he is agreeable to PT. M4 PT-IP Mobility and Gait Start: 06/30/24 16:44 Freq: NEEDED Status: Active Protocol: Document 07/01/24 10:58 TS (Rec: 07/01/24 11:05 TS [id number]) PT-Bed Mobility Assessment Supine to Sit Supine to Sit Standby Assistance Sit to Supine Sit to Supine Standby Assistance Scooting Scooting to Edge of Bed Standby Assistance PT-Transfer Assessment Sit to and From Stand Sit to and from Stand Standby Assistance Equipment Transfer Assistive Device Gait Belt,Front Wheeled Walker Orthotic/Prosthetic Devices or Brace: No Comments Mobility Comments Supine to sit SBA with BUE support. STS with FWW SBA, pt has good standing balance. He ambulates ~15' SBA with step to gait. Sit to supine into bed SBA. Education provided on intensity and frequency of ther-ex. Pt was left in bed, all needs met. Gait Assessment Gait Gait Assistance Required: Contact Guard Assist Distance (Feet) 15 Assistive Devices Assistive Device Gait Belt,Front Wheeled Walker Orthotic/Prosthetic Devices or Brace: No Gait Deviations General Gait Pattern Decreased Stride Length Factors Limiting Gait Function Factors Limiting Gait Function Decreased Sensation,Limited Range of Motion PT-Balance Assessment Sitting Balance and Reactions Static Sitting Balance Ability Normal Dynamic Sitting Balance Ability Good Standing Balance and Reactions Static Standing Balance Ability Good Dynamic Standing Balance Ability Fair Device Used FWW M5 PT-IP Objective Assessments Start: 06/30/24 16:44 Freq: NEEDED Status: Active Protocol: Document 06/30/24 16:44 KJ (Rec: 06/30/24 16:58 KJ [id number]) Orientation Orientation/Cognition Level of Alertness Alert Orientation Name,Age,Birthday,Place, Situation Language Function Ability No Deficits Noted Safety Awareness Understands Safety Issues Memory Description No Deficits Noted Gross Range of Motion Upper Extremity ROM Assessment Within Functional Limits Lower Extremity ROM Assessment Right Impaired Strength Upper Extremity Strength Assessment Within Functional Limits Lower Extremity Strength Assessment Right Impaired Knee 3/5 M6 PT-IP Treatment Start: 06/30/24 16:44 Freq: NEEDED Status: Active Protocol: Document 07/01/24 10:58 TS (Rec: 07/01/24 11:05 TS [id number]) Physical Therapy Treatment Education Education Provided Weight Bearing Status,Post-Op Packet,Safety M7 PT-IP Assessment and Plan Start: 06/30/24 16:44 Freq: NEEDED Status: Active Protocol: Document 07/01/24 10:58 TS (Rec: 07/01/24 11:05 TS [id number]) PT Summary Assessment and Plan Potential Rehabilitation Potential Excellent Summary Impairments Pain,ROM,Strength,Sensation, Gait,Activity Tolerance Progress Towards Goals Progressing Toward Goals Assessment Summary Pt is making good progress with his mobility. He is SBA for all mobility. He ambulates well with use of FWW. PT is recommending home with assist and outpatient PT. Goals Bed Mobility Goal Independent Transfer Goal Standby Assistance Gait Goal Standby Assistance Gait Distance 30 Other Goals ascend/descend one step w/rail and cane Days to Meet Goals 2 Frequency of Treatment Frequency Of Treatment Twice a Day Treatment Plan Physical Therapy Treatment Plan Transfer Training,Gait Training,Therapeutic Exercise Weight Bearing Status Weight Bearing Status Weight Bear as Tolerated Recommendations To Nursing Amount of Assist Needed Standby Assistance Discharge Recommendations PT Discharge Recommendations Home with Assistance Transportation Needs at Discharge Private Vehicle
[2024-07-01] MEDS: ACETAMINOPHEN 325 MG TABLET 650 MG PO (11:01)
--- NOTE | 2024-07-01 11:07 | PC.NURSE ---
Addendum entered by Pennie Anderson R.N. 07/01/24 12:38: Pt's home med returned to Pt from pharmacy. Original Note: Pt has been cleared by PT for home with Spouse and orders have been written. IV has been removed. Went over d/c instructions with Pt-discussed d/c meds, time of last dose, reviewed stroke education, s/s of infection, no driving until no longer taking narcotics and until cleared by your Surgeon. Encouraged Pt to drink plenty of fluids to prevent constipation or dehydration, and to follow up as scheduled. Pt denied further questions and stated his Spouse would be here to pick him up between 12:30-1:00 at which time he will be taken out via w/c by FACULTY MEMBER with all belongings.
--- NOTE | 2024-07-01 11:09 | CM.DANOTE ---
Initial DCP Assessment Visit Note Reviewed EMR and team rounds for status updates. Met with pt at bedside to introduce self and role, pt was found to be alert/oriented, and able to discuss his plan for home d/c later this afternoon. Pt lives modified independently with his in their own home in [place]. She will be picking him up at 1:00pm. He denies any CM assistance/resource needs at this time. Pt is a 78 year-old M post-op day 1 from a R-total knee arthroplasty. He has tried injections in the past for pain, however did not having lasting benefit. He has not had any postoperative complications, and shares that he has additional family members meeting him at the house to assist with getting him into the house and assisting with his initial recovery needs. DCP will continue to monitor for any additional needs prior to d/c. He has a OP PT plan already scheduled. Discharge Planning/Care Management CM Discharge Assessment Start: 07/01/24 11:06 Freq: Status: Active Protocol: Document 07/01/24 11:06 DPL (Rec: 07/01/24 11:09 DPL [id number]) Discharge Planning Assessment Assigned Plant Propagator HALI Farfan Advance Directives? No History Provided By Patient,Medical Record Has Patient been admitted in last 30 No days? Prior Living Arrangements House Household Members spouse Type of transporation used prior to Drives own vehicle admit Independent with ADL's No: modified independent with a cane Is patient alert and oriented? Yes Needs Assistance With Home Chores / Shopping DME Already Rented / Owned Elevated Toilet Seat,FWW / Walker,Cane Patient/Family Preference OP PT Therapy Barriers to Discharge No Discharge Plan Home Referrals Initiated None needed Whiteboard Updated in Patient Room with Yes name and ext. # of Plant Propagator Review Status In Process Please Provide Date Initial DC 07/01/24 Assessment Was Performed Pre-Anesthesia Assessment Start: 06/28/24 07:30 Freq: Status: Active Protocol: Document 06/28/24 08:37 LB (Rec: 06/28/24 09:05 LB [id number]) Pre-Anesthesia Assessment PAC Comment 06/28/24 Phone assessment. Preferred Name Amol Patient Information Reviewed Via Phone Assessment Assessment Completed With Patient Diagnostic Results BMP/CMP,CBC,EKG Comment 06/14/24 at . Hgb 11.9 HCT 34.6 Primary Care Provider Pebbles Nadja Kirsten Medical Clearance Received Not Applicable Seen Specialist in Last 12 Months Yes Specialist Seen Clerical Specialist,Orthopedist Primary Language Irish Preferred Language Irish Patient Services Rep Required No Height 185.42 cm Weight 99.79 kg Body Mass Index (BMI) 29.0 Hearing Ability Normal Visual Assist Glasses Dentition Type Teeth, Natural Present,Teeth, Missing Barriers to Learning None Other Aids No Hx Anesthesia Reactions No Hx Family Anesthesia Reaction No Hx Malignant Hyperthermia No Hx Blood Transfusions No Anesthesia Review Requested No Commissioned Sales Associate No alcohol intake former Smoking Status Former smoker how long ago did patient quit smoking Quit 04/15/2024 Substance Use Type does not use Comment Quit drinking 01/04/2024. Pain Present Pain Reported Comment Right knee. Musculoskeletal Symptoms Difficulty Walking,Joint Pain History of Falling (Recent or History of Yes ) Comment 10/2023 - ? ETOH related. Patient is completely paralyzed or No completely immobile Mental Status Oriented to own ability Comment Will bring walker. Is patient on oxygen? No Hx Sleep Apnea No Currently Taking a Beta Tiffanie No Can You Climb a Flight of Stairs Without Yes SOB Hx Chest Pain No Hx SOB Yes: NAM - starting to improve with quitting smoking. Hx Syncope or Dizziness No Anti-Coagulant Therapy No Has a Clerical Specialist Yes Clerical Specialist name Dr Meeks Cardiac Testing Yes: Echo 01/26/24. Hx Pacemaker/ICD No Cardiac Clearance Received Yes Gastrointestinal Symptoms Reflux Chronic UTI No Bladder Pattern Frequency,Nocturia Urinary Catheter Present No Hx Urinary Self Catheterization No Diabetes Pre-diabetes HgbA1C 6.0 Date 06/14/24 Hx Drug Resistant Organism No Presence of External or Internal Medical Yes: Hernia mesh. Devices Have you had any close contact with No someone diagnosed with COVID-19? Are you experiencing any of these No symptoms symptoms? Comment Denies covid x2 months. Marital Status Lives With spouse Current Living Arrangements House Number of Floors (Floors) One Floor Number of Stairs To Enter/Railing? No steps to enter. Support System Spouse Does the Patient Have Assistance After Yes Surgery Patient Discharge Plan Description Return Home Additional comment Advised same day surgery. Feels Safe in Current Environment Yes Do you have a plan to hurt yourself or No Plan others? Emergency Contact Name Melanie Brannon - Emergency Contact Advance Directives? No PAC Instructions Assistance for 24 hours post- op,Do not shave/clip surgical site,Durable medical equipment ,Medications to take/avoid,No ETOH/petroleum product on skin DOS,NPO,Post-op transportation,Pre-surgical wash,Sensory aids,Sturdy shoes /comfortable clothes,Do not bring valuables and remove jewelry
--- NOTE | 2024-07-01 15:05 | PC.NURSE ---
1345- Pt out via w/c by SENIOR TRAINING SPECIALIST to POV with Spouse and all belongings
== END 2024-07-01 13:45 | disposition home or self-care (01) ==
LOC: OR 06:58 → AC 13:16
PROVIDERS: PCP Physician Assistant; Referring Provider Orthopaedic Surgery Foot and Ankle Surgery; Visit Provider Orthopaedic Surgery Foot and Ankle Surgery
PROC: 0SRC0JZ Replacement of Right Knee Joint with Synthetic Substitute, Open Approach (ICD-10-PCS; CPT 27447; principal; 2024-06-30 07:45)
DX: M17.11 Unilateral primary osteoarthritis, right knee (principal); G89.18 Other acute postprocedural pain; M25.761 Osteophyte, right knee
CPT/HCPCS: 27447; 20985; 64450; 73560; 97110; 97116; 97161; 97165; 97530; 97535; C1776; C9290; J0171; J0690; J1100; J2405; J2704; J3010